=== PATIENT | male | born 1950 | race Caucasian/White ===

== ENCOUNTER 2019-09-11 16:40 | Emergency (ER) | payer MEDICARE, MEDICAID ==
[~2019-09-11] VITALS: Ht 175.3 cm; Wt 93.7 kg
[~2019-09-11 16:40] MED LIST: ACET-1025 PO; ALBU18HF2 INH; AMIT10TA10 PO; ATOR40TA PO; BECL7.3A INH; CEPH750C9 PO; CLOP75TA35 PO; DABI75CA3 PO; DOCU-148 PO; FURO-150 PO; GABA800T11 PO; HYDR-4383 PO; LISI-222 PO; NITR0.4T SL; SOTA80TA73 PO; TIOT18CA7 IH
[2019-09-11 16:43] VITALS: BP 128/73
[2019-09-11] MEDS ORDERED: clindamycin 150mg capsule PO ONE (18:10)
[2019-09-11] MEDS ORDERED: CLIN-90 PO (18:11)
== END 2019-09-11 18:22 | disposition home or self-care (01) ==
LOC: ER 16:41
DX: L03.113 Cellulitis of right upper limb (principal); I25.10 Atherosclerotic heart disease of native coronary artery without angina pectoris; I10 Essential (primary) hypertension; J44.9 Chronic obstructive pulmonary disease, unspecified; Z98.890 Other specified postprocedural states; Z72.89 Other problems related to lifestyle; Z88.0 Allergy status to penicillin; Z79.899 Other long term (current) drug therapy
CPT/HCPCS: 99283

== ENCOUNTER 2019-09-13 14:55 | Emergency (ER) | payer MEDICARE, MEDICAID ==
[~2019-09-13] VITALS: Ht 175.3 cm; Wt 93.2 kg
[~2019-09-13 14:55] MED LIST changes: +CLIN-97 PO
[2019-09-13 15:00] VITALS: BP 123/66
== END 2019-09-13 15:58 | disposition home or self-care (01) ==
LOC: ER 14:55
DX: R22.31 Localized swelling, mass and lump, right upper limb (principal); L53.9 Erythematous condition, unspecified; I48.91 Unspecified atrial fibrillation; I25.10 Atherosclerotic heart disease of native coronary artery without angina pectoris; I10 Essential (primary) hypertension; J44.9 Chronic obstructive pulmonary disease, unspecified; Z98.61 Coronary angioplasty status; Z98.890 Other specified postprocedural states; Z72.89 Other problems related to lifestyle; Z88.0 Allergy status to penicillin; Z79.899 Other long term (current) drug therapy; Z79.2 Long term (current) use of antibiotics
CPT/HCPCS: 99284